=== PATIENT | female | born 1985 | race Caucasian/White ===

== ENCOUNTER 2017-07-26 02:35 | Inpatient (IN) | payer BC ==
[~2017-07-26 02:35] MED LIST: ceFOXitin(*) 2 GM in NS 0.9% 50 ML* 50 ML IVPB SCH
[2017-07-26] MEDS ORDERED: ceFOXitin(*) 2 GM in NS 0.9% 50 ML* 50 ML IVPB ONE (07:15)
[2017-07-26] MEDS ORDERED: Morphine PF AMP (0.5MG/ML)* 5 MG/10 ML AMP ONE (07:34)
[2017-07-26] MEDS ORDERED: Sodium Citrate/Citric Acid* 15 ML UDC ONE (07:36)
[2017-07-26] MEDS ORDERED: Buffered Lidocaine 0.9% SYRIN* 5 ML/SYR SYRINGE INTRADERM ONE (07:42)
[2017-07-26] MEDS ORDERED: Phenylephrine IV* 40 MCG/ML 10 ML SYRINGE ONE (08:21)
[2017-07-26] MEDS ORDERED: OXYTOCIN* 10 UNITS/ML 1 ML VIAL ONE ×2 (08:21→08:50)
[2017-07-26] MEDS ORDERED: Ondansetron INJ* 2 MG/ML VIAL ONE (08:21)
[2017-07-26] MEDS ORDERED: fentaNYL* 50 MCG/ML 2 ML VIAL (100 MCG VIAL) IV PRN (08:45)
[2017-07-26] MEDS ORDERED: Ketorolac INJ* 30 MG/ML 1 ML VIAL IV PRN (08:45)
[2017-07-26] MEDS ORDERED: PROCHLORPERAZINE INJ 5 MG/ML 2 ML VIAL IV PRN (08:45)
[2017-07-26] MEDS ORDERED: Naloxone* 0.4 MG/ML 1 ML VIAL IV PRN ×2 (08:45→08:46)
[2017-07-26] MEDS ORDERED: Naloxone* 2 MG in NS 0.9% 250 ML* 250 ML IV PRN (08:46)
[2017-07-26] MEDS ORDERED: Ondansetron INJ* 2 MG/ML VIAL IV PRN (08:46)
[2017-07-26] MEDS ORDERED: oxyCODONE/Acetamin 5/325 MG* TAB PO PRN (08:46)
[2017-07-26] MEDS ORDERED: Bupivacaine-MPF SPINAL* 7.5 MG/2 ML AMP ONE (09:34)
[2017-07-26] MEDS ORDERED: Lidocaine 2% PF* 10 ML AMP ONE (09:34)
[2017-07-26] MEDS ORDERED: Witch Hazel PAD* JAR TOPICAL PRN (10:39)
[2017-07-26] MEDS ORDERED: Zolpidem TAB* 5 MG PO PRN (10:39)
[2017-07-26] MEDS ORDERED: Dibucaine 1% 28.35 GM TUBE PR PRN (10:39)
[2017-07-26] MEDS ORDERED: Acetaminophen TAB* 325 MG PO PRN (10:39)
[2017-07-26] MEDS ORDERED: Glycerin ADULT SUPP PR PRN (10:39)
[2017-07-26] MEDS ORDERED: Oxytocin in LR* 20 UNITS/1,000 ML BAG IVPB SCH (11:00)
[2017-07-26] MEDS: Ketorolac INJ* 30 MG/ML 1 ML VIAL IV PRN ×2 (11:39→18:40)
[2017-07-26] MEDS: Nalbuphine* 20 MG/ML 1 ML VIAL IV PRN ×2 (11:40→22:49)
[2017-07-26] MEDS: Docusate CAP* 100 MG PO SCH ×2 (13:37→22:41)
[2017-07-26] MEDS: Simethicone TAB* 80 MG TAB.CHEW PO SCH ×3 (13:37→22:41)
--- NOTE | 2017-07-26 18:09 | OP ---
DATE OF OPERATION: 07/26/17 - ROOM #116 DATE OF : 81 SURGEON: Harmeet Mar MD BRANCH DIRECTOR: Angel Luis Medrano CNM PRE-OP DIAGNOSES: 1. Previous section. 2. Desired permanent sterilization. POST-OP DIAGNOSES: 1. Previous section. 2. Desired permanent sterilization. OPERATIVE PROCEDURE: Low transverse section and bilateral tubal ligation. ESTIMATED BLOOD LOSS: 600 cc. COMPLICATIONS: None. FINDINGS: This is a 32-year-old 2, para 1 with a previous section, who desired an elective repeat. At the time of , she had a viable male, Apgars were 8 and 9, weight was 8 pounds 2 ounces. Normal appearing uterus, fallopian tubes and ovaries. DESCRIPTION OF PROCEDURE: The patient identified and procedure identified as a low transverse section and bilateral tubal ligation. The patient was taken to the operating room and prepped and draped in the usual fashion in the left lateral recumbent position under spinal anesthesia. A Pfannenstiel incision was made through the old incision and carried down through fat, fascia , and peritoneum. A transverse incision was made in the lower uterine segment and extended laterally using the bandage scissors. The above infant was delivered through the incision with ease. The cord was doubly clamped and cut, and the was handed to the awaiting molding utility worker. Cord blood was obtained. Placenta delivered spontaneously. The uterine incision was then closed using 0 Polysorb in a running fashion. A second layer was used to imbricate the first layer. Good hemostasis was verified. The right fallopian tube was grasped in its mid part, the tube was followed out to it's fimbriated ends. The fimbria was cross clamped with a Magaly and ligated x2 using 0 Polysorb. Same procedure was carried out on the left, after following it out to its fimbriated ends. Hemostasis was verified. The uterus was placed back into the abdominal cavity. The gutter was wiped out with a wet lap sponge. Good hemostasis was verified both in the hysterotomy site and the bilateral tubal ligation sites, were found to be hemostatic. The peritoneum was then closed using 3-0 Polysorb in a running fashion. Good hemostasis in the subrectus layers. The fascia was closed using 0 Polysorb in a running fashion. The space was closed using 3-0 Polysorb in a simple fashion and the skin was closed with 4-0 Monocryl in a subcuticular fashion. All sponge and instrument counts were correct and the patient returned to the recovery room in stable condition. [id number]/[facility] #: [id number] MTDD
[2017-07-27] MEDS ORDERED: oxyCODONE/Acetamin 5/325 MG* TAB PO PRN (00:09)
[2017-07-27] MEDS: Ketorolac INJ* 30 MG/ML 1 ML VIAL IV PRN (03:02)
[2017-07-27] MEDS ORDERED: Sodium Citrate/Citric Acid* 15 ML UDC PO ONE (06:00)
[2017-07-27] MEDS: Simethicone TAB* 80 MG TAB.CHEW PO SCH ×4 (08:43→22:11)
[2017-07-27] MEDS: Docusate CAP* 100 MG PO SCH ×3 (08:43→22:11)
[2017-07-27 08:59] LABS: ABS Basophils 0 10^3/ul (0-0.2); ABS Eosinophils 0.1 10^3/ul (0-0.6); ABS Lymphocytes 1.5 10^3/ul (1.0-4.8); ABS Monocytes 0.7 10^3/ul (0-0.8); ABS Neutrophils 10.8 10^3/ul (1.5-7.7); ABS Nucleated RBC 0 10^3/ul; Eosinophil % 0.6 % (0-6); Hematocrit 30 % (35-47); Hemoglobin 9.9 g/dl (12.0-16.0); Lymphocyte % 11.5 % (25-47); Mean Corpuscular HGB Conc 33 g/dl (31-36); Mean Corpuscular Hemoglobin 28 pg (27-31); Mean Corpuscular Volume 82 fL (80-97); Mean Platelet Volume 7.9 um3 (7.4-10.4); Nucleated Red Blood Cells % 0; Platelet Count 196 10^3/ul (150-450); Red Blood Count 3.62 10^6/ul (4.0-5.4); Red Cell Distribution Width 14 % (10.5-15); White Blood Count 13.1 10^3/ul (3.5-10.8)
[2017-07-27] MEDS: Ferrous Gluconate TAB* 324 MG TAB PO SCH ×2 (09:29→22:13)
[2017-07-27] MEDS: Ibuprofen TAB* 600 MG PO PRN ×3 (09:35→22:11)
[2017-07-27] MEDS: oxyCODONE/Acetamin 5/325 MG* TAB PO PRN ×2 (18:24→22:12)
[2017-07-28] MEDS: oxyCODONE/Acetamin 5/325 MG* TAB PO PRN ×6 (02:51→23:57)
[2017-07-28] MEDS: Ibuprofen TAB* 600 MG PO PRN ×4 (05:44→23:57)
[2017-07-28] MEDS: Docusate CAP* 100 MG PO SCH ×3 (08:32→20:12)
[2017-07-28] MEDS: Simethicone TAB* 80 MG TAB.CHEW PO SCH ×4 (08:32→20:12)
[2017-07-28] MEDS: Ferrous Gluconate TAB* 324 MG TAB PO SCH ×2 (08:32→20:12)
[2017-07-29] MEDS: oxyCODONE/Acetamin 5/325 MG* TAB PO PRN ×2 (04:15→07:57)
[2017-07-29] MEDS: Ibuprofen TAB* 600 MG PO PRN (07:57)
[2017-07-29] MEDS: Simethicone TAB* 80 MG TAB.CHEW PO SCH (07:57)
[2017-07-29] MEDS: Docusate CAP* 100 MG PO SCH (07:57)
[2017-07-29] MEDS: Ferrous Gluconate TAB* 324 MG TAB PO SCH (07:58)
[2017-07-29 08:03] VITALS: BP 139/94
== END 2017-07-29 11:32 | disposition home or self-care (01) | DRG 540 ==
LOC: MCHOB 02:35 → UNDOADMIN 02:35 → MCHOB 06:01
PROVIDERS: ADMIT Obstetrics & Gynecology; ATTEND Obstetrics & Gynecology
PROC: 0UB70ZZ Excision of Bilateral Fallopian Tubes, Open Approach (ICD-10-PCS; 2017-07-26)
PROC: 10D00Z1 Extraction of Products of Conception, Low, Open Approach (ICD-10-PCS; principal; 2017-07-26 07:45)
DX: O34.211 Maternal care for low transverse scar from previous cesarean delivery (principal); O99.344 Other mental disorders complicating childbirth; F41.9 Anxiety disorder, unspecified; K21.9 Gastro-esophageal reflux disease without esophagitis; Z30.2 Encounter for sterilization; Z87.891 Personal history of nicotine dependence; Z3A.39 39 weeks gestation of pregnancy; Z37.0 Single live birth
CPT/HCPCS: 36415; 85025; 88302; A9270-GY; J0694; J1885; J2001; J2300; J2405; J2590